=== PATIENT | male | born 1985 | race Two or more races ===

== ENCOUNTER 2019-06-03 03:31 | Emergency (ER) | payer OTHER ==
[~2019-06-03] VITALS: Ht 175.3 cm; Wt 77.1 kg
--- NOTE | 2019-06-03 03:50 | NUR ---
[facility] [employer] FROM [facility]. PT IS LETHARGIC, HARD TO ARROUSE AND CAN KEEP SELF AWAKE. NO RESP DISTRESS NOTED. BREATHING EVEN AND UNLABORED. PT IS RESPONSIVE TO PAINFUL STIMULI. UPON ASSESSMENT PT DOES NOT MAKE SENSE WITH WHAT HE IS SAYING WHY HE IS AT THE ER. 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 MD AT BEDSIDE. ORDERS RECEIVED. [employer] AT BEDSIDE
[2019-06-03 03:55] LABS: APPEARANCE,URINE Clear (CLEAR); BILIRUBIN,URINE SMALL (NEGATIVE); BLOOD, URINE Trace-intact Ery/uL (NEGATIVE); COLOR,URINE Yellow (YELLOW); KETONES,URINE Trace (NEGATIVE); LEUKOCYTE ESTERASE ,URINE Negative (NEGATIVE); NITRITE, URINE Negative (NEGATIVE); PROTEIN,URINE Negative (NEGATIVE); UGLUCOSE Negative (NEGATIVE); UROBILINOGEN,URINE 0.2 EU/dL (0.2)
[2019-06-03 04:26] LABS: BASOPHILS # (AUTO) 0.1 /CMM (0.0-0.2); BASOPHILS % (AUTO) 0.8 % (0.0-2.0); EOSINOPHILS % (AUTO) 4.8 % (0.0-6.0); HEMATOCRIT 43 % (39-51); HEMOGLOBIN 14.7 g/dL (13.5-17.5); LYMPHOCYTES % (AUTO) 25.6 % (20.0-44.0); MEAN CORPUSCULAR HGB CONC 34 g/dl (31.0-36.0); MEAN CORPUSCULAR VOLUME 86 fL (80-96); MONOCYTES # (AUTO) 0.6 /CMM (0.1-1.30); MONOCYTES % (AUTO) 7.6 % (2.0-12.0); NEUTROPHILS # (AUTO) 4.7 /CMM (1.8-8.9); NEUTROPHILS % (AUTO) 61.2 % (43.0-81.0); PLATELET COUNT (AUTO) 224 /CMM (150-450); RED BLOOD CELL COUNT(AUTO) 4.96 MIL/uL (4.5-6.0); WHITE BLOOD COUNT (AUTO) 7.7 K/uL (4.3-11.0)
[2019-06-03 04:32] LABS: BACTERIA,URINE Few /HPF (None Seen); MUCUS,URINE Few /LPF (None Seen); RBC,URINE 21-50 /HPF (0-2); SQUAMOUS EPITHELIAL CELL,UR Rare /HPF (None Seen)
[2019-06-03 04:38] LABS: CALCIUM, SERUM 8.5 mg/dL (8.5-10.1); CARBON DIOXIDE 31 mmol/L (21-32); CHLORIDE 105 mmol/L (98-107); CREATININE 0.9 mg/dL (0.6-1.3); GLUCOSE 101 mg/dL (74-106); POTASSIUM 4.2 mmol/L (3.5-5.1); SODIUM SERUM 140 mmol/L (136-145); UREA NITROGEN, BLOOD 25 mg/dL (7-18)
[2019-06-03 04:46] LABS: ACETAMINOPHEN 0 ug/ml (10-30); ALANINE AMINOTRANSFERASE 23 U/L (12-78); ALBUMIN 3.6 g/dL (3.4-5.0); ALCOHOL, BLOOD < 3 mg/dL (0-0); ALKALINE PHOSPHATASE 90 U/L (46-116); ASPARTATE AMINOTRANSFERASE 17 U/L (15-37); BILIRUBIN,DIRECT 0.1 mg/dL (0.0-0.2); BILIRUBIN,TOTAL 0.4 mg/dL (0.2-1.0); SALICYLATE 2.3 mg/dL (2.8-20.0); TOTAL PROTEIN, SERUM 7.3 g/dL (6.4-8.2)
--- NOTE | 2019-06-03 05:31 | NUR ---
PT IN BED SLEEPING. [employer] AT BEDSIDE. NO DISTRESS NOTED.
--- NOTE | 2019-06-03 07:21 | NUR ---
PT ARROUSED EASILY. ALERT AND AWAKE. NO DISTRESS NOTED, BREATHING EVEN AND UNLABORED. PT WAS AMBULATED AND TOLERATED. PT PO TRIALS WAS TOLERATED WELL. MD NUNEZ
--- NOTE | 2019-06-03 07:23 | NUR ---
ZEYAD ANDSHELBIE ORDER CANCELLED BY MD SINCE OT IS ALREADY AWAKE
[2019-06-03] MEDS ORDERED: NALOXONE HCL 0.4 MG/ML AMPUL IV ONE (07:30)
[2019-06-03] MEDS ORDERED: ONDANSETRON HCL/PF - ER 4 MG/2 ML VIAL IV ONE (07:30)
--- NOTE | 2019-06-03 07:36 | NUR ---
REPORT RECEIVED FROM SAUL ALLAN FOR [facility]
--- NOTE | 2019-06-03 07:47 | NUR ---
Patient discharged in custody in stable condition. Written and verbal after care instructions given. Patient and officers verbalizes understanding of instruction.
[2019-06-03 07:49] VITALS: BP 108/74
== END 2019-06-03 07:50 ==
LOC: ER 03:35
DX: F19.10 Other psychoactive substance abuse, uncomplicated (principal); F11.10 Opioid abuse, uncomplicated; F15.10 Other stimulant abuse, uncomplicated; F13.10 Sedative, hypnotic or anxiolytic abuse, uncomplicated
CPT/HCPCS: 36415; 80048; 80076; 80305; 80307; 80329; 81001; 85025; 99283; G0480; 81000-TC; J2405